=== PATIENT | female | born 1990 | race Asian ===

== ENCOUNTER 2016-08-12 20:43 | Emergency (ER) | payer SELFPAY ==
[~2016-08-12 20:43] MED LIST: CIPR500T4 PO; HYDR-906 PO; HYDR25CA PO; IBUP-1542 PO; IBUP800T25 PO
== END 2016-08-13 00:19 | disposition left against medical advice (07) ==
LOC: E/R 20:43
DX: Z53.21 Procedure and treatment not carried out due to patient leaving prior to being seen by health care provider (principal)